=== PATIENT | male | born 1975 ===

== ENCOUNTER 2018-03-24 19:21 | Inpatient (IN) ==
[2018-03-24] MEDS ORDERED: SODIUM CHLORIDE 0.9% IV PRN (21:29)
[2018-03-24] MEDS ORDERED: POTASSIUM CHLORIDE RIDER 10 MEQ in PREMIX 1 EACH IV PRN (21:29)
[2018-03-24] MEDS ORDERED: DEXTROSE 50% 25 GM/50 ML SYRINGE IV PRN ×2 (21:29)
[2018-03-24] MEDS ORDERED: MAGNESIUM SULF RIDER 4 GM in PREMIX 1 EACH IV PRN (21:29)
[2018-03-24] MEDS ORDERED: SODIUM BICARB INJ 100 MEQ in STERILE WATER INJ 400 ML IV PRN (21:29)
[2018-03-24] MEDS ORDERED: MAGNESIUM SULF RIDER 2 GM in PREMIX 1 EACH IV PRN (21:29)
[2018-03-24] MEDS ORDERED: SODIUM PHOSPHATE IV PRN (21:29)
[2018-03-24] MEDS ORDERED: INSULIN REGULAR DRIP 100 ML IV SCH (21:30)
[2018-03-24] MEDS: SODIUM CHLORIDE 0.9% 1,000 ML IV SCH ×3 (21:30→23:48)
[2018-03-24 21:36] LABS: Basophils % 0.3 % (0.0-0.8); Hematocrit 45.1 VOL% (42.0-52.0); Hemoglobin 14.2 GM/DL (14.0-18.0); Immature Granulocytes % 0.6 %; Immature Granulocytes Absolute 0.07 #; Lymphocytes # 1.6 10*3/uL (1.4-4.0); Lymphocytes % 13.3 % (21.2-54.2); Mean Corpuscular HGB Conc 31.5 GM/DL (32-36); Mean Corpuscular Hemoglobin 26 PG (27-34); Mean Corpuscular Volume 82.8 FL (87-102); Mean Platelet Volume 10.8 FL (9.6-12.0); Monocytes # 0.7 10*3/uL (0.11-0.8); Monocytes % 5.9 % (1.7-12.7); Neutrophils # 9.4 10*3/uL (1.4-7.4); Neutrophils % 79.9 % (38.7-73.9); Platelet Count 199 T/CUMM (130-400); Red Blood Count 5.45 MC/CUMM (3.8-5.5); Red Cell Distribution Width 13.2 % (9.3-17.3); White Blood Count 11.7 T/CUMM (4-12)
[2018-03-24 21:57] LABS: Calcium 8.6 MG/DL (8.5-10.1); Osmolality,Calculated 280.5 MOS/KG (273-304); Potassium 4.2 MMOL/L (3.5-5.1)
[2018-03-25] MEDS: DEXTROSE 5% NACL 0.9% 1,000 ML IV SCH ×3 (01:41→12:40)
[2018-03-25 03:20] LABS: Osmolality,Calculated 274.2 MOS/KG (273-304); Potassium 4.9 MMOL/L (3.5-5.1)
[2018-03-25] MEDS: SODIUM CHLORIDE 0.9% 1,000 ML IV SCH ×3 (03:20→16:19)
[2018-03-25] MEDS ORDERED: DEXT 5% NACL 0.9% KCL 20 MEQ 20 MEQ/1,000 ML BAG IV SCH (04:00)
[2018-03-25] MEDS ORDERED: SODIUM CHLORIDE 0.45% 1,000 ML IV SCH (05:30)
[2018-03-25 06:52] LABS: Apearance,Urine CLEAR (Clear); Bilirubin,Urine Negative (Negative); Blood, Urine Negative (Negative); Glucose,Urine (UA) >=500 mg/dL (Negative); Ketones,Urine 80 mg/dL (Negative); Mucus,Urine Occasional /LPF (Occasional); Nitrite,Urine Negative (Negative); Protein,Urine Negative; Urine Color Yellow (Yellow); Urine Specific Gravity 1.022 (1.001-1.035); Urine Urobilinogen < 2.0 EU/DL (0.2-1.0); WBC,Urine 1 /HPF (0-6)
[2018-03-25] MEDS ORDERED: INSULIN LISPRO PROTAMINE/LISPRO 75/25 100 UNIT/ML SUBCUT SCH (08:30)
[2018-03-25] MEDS ORDERED: ENOXAPARIN 40 MG/0.4 ML SYRINGE SUBCUT SCH (09:00)
[2018-03-25 09:43] LABS: Calcium 8.1 MG/DL (8.5-10.1); Osmolality,Calculated 278.5 MOS/KG (273-304); Potassium 4.3 MMOL/L (3.5-5.1)
[2018-03-25] MEDS: ACETAMINOPHEN 325 MG TABLET PO PRN ×2 (09:54→14:44)
[2018-03-25] MEDS: INSULIN ASPART PROTAMINE/ASPART 70/30 100 UNIT/ML SUBCUT SCH (16:57)
[2018-03-25] MEDS: INSULIN LISPRO 100 UNIT/ML SUBCUT SCH ×2 (17:59→22:44)
[2018-03-26] MEDS: SODIUM CHLORIDE 0.9% 1,000 ML IV SCH ×2 (03:31→09:04)
[2018-03-26] MEDS: INSULIN LISPRO 100 UNIT/ML SUBCUT SCH ×5 (03:41→20:17)
[2018-03-26 04:08] LABS: Basophils % 0.7 % (0.0-0.8); Eosinophils # 0.1 10*3/uL (0.0-0.87); Eosinophils % 1.1 % (0.00-10.9); Hematocrit 38.6 VOL% (42.0-52.0); Hemoglobin 12.5 GM/DL (14.0-18.0); Immature Granulocytes % 0.2 %; Immature Granulocytes Absolute 0.01 #; Lymphocytes # 2.8 10*3/uL (1.4-4.0); Lymphocytes % 49.7 % (21.2-54.2); Mean Corpuscular HGB Conc 32.4 GM/DL (32-36); Mean Corpuscular Hemoglobin 26 PG (27-34); Mean Corpuscular Volume 80.1 FL (87-102); Monocytes # 0.3 10*3/uL (0.11-0.8); Monocytes % 6.1 % (1.7-12.7); Neutrophils # 2.3 10*3/uL (1.4-7.4); Neutrophils % 42.2 % (38.7-73.9); Platelet Count 170 T/CUMM (130-400); Red Blood Count 4.82 MC/CUMM (3.8-5.5); White Blood Count 5.5 T/CUMM (4-12)
[2018-03-26 04:31] LABS: Calcium 8.4 MG/DL (8.5-10.1); Osmolality,Calculated 280.1 MOS/KG (273-304); Potassium 3.2 MMOL/L (3.5-5.1)
[2018-03-26] MEDS ORDERED: POTASSIUM CHLORIDE INJ 40 MEQ in SODIUM CHLORIDE 0.9% 380 ML IV SCH (05:00)
[2018-03-26] MEDS ORDERED: INSULIN LISPRO 100 UNIT/ML SUBCUT SCH (08:00)
[2018-03-26] MEDS: INSULIN ASPART PROTAMINE/ASPART 70/30 100 UNIT/ML SUBCUT SCH ×2 (09:02→17:47)
[2018-03-26] MEDS: POTASSIUM CHLORIDE 20 MEQ TABLET PO SCH ×3 (09:50→17:46)
[2018-03-27 05:37] LABS: Calcium 8.4 MG/DL (8.5-10.1); Osmolality,Calculated 280.8 MOS/KG (273-304); Potassium 3.7 MMOL/L (3.5-5.1)
[2018-03-27] MEDS: INSULIN ASPART PROTAMINE/ASPART 70/30 100 UNIT/ML SUBCUT SCH (07:46)
[2018-03-27] MEDS: INSULIN LISPRO 100 UNIT/ML SUBCUT SCH ×2 (11:32→11:34)
[2018-03-27 12:19] VITALS: BP 161/84
[2018-03-30] MEDS ORDERED: INFLUENZA VIRUS VACCINE 0.5 ML SYRINGE IM ONE (21:35)
== END 2018-03-27 13:00 | disposition home or self-care (01) | DRG 638 ==
LOC: N.ICU 21:22 → SUATTDRO 21:22 → N.4E 03-26 10:39
PROVIDERS: ADMIT Internal Medicine; ATTEND Internal Medicine